=== PATIENT | female | born 1985 | race Two or more races ===

== ENCOUNTER 2016-08-21 14:07 | Emergency (ER) | payer OTHER ==
[2016-08-21 14:20] VITALS: BP 131/75; TEMP 97.7; BMI 19.5
--- NOTE | 2016-08-21 17:51 | PDOC ---
[id number] 4d HEADACHES, CHEST PAIN Time Seen by Provider: 08/21/16 17:40 History Source: Patient Exam Limitations: No Limitations - History of Present Illness Initial Comments: 08/21/16 17:47 30 yr female history of hypothyroidism presents with bilateral pain to under her breasts /rib cage for one week. Pt denies shortness of breath, no chest pain. Pt states she stopped taking her thyroid medication 2 weeks ago because it was making her itch. Pt denies smoking,, no ilicit drug or alcohol use. Pt denies travel, no OCP use. 08/21/16 18:59 Past History - Past Medical History Allergies/Adverse Reactions: Allergies Allergy/AdvReac Type Severity Reaction Status Date / Time No Known Allergies Allergy Verified 08/21/16 14:17 Home Medications: Ambulatory Orders No Home Medications 04/15/12 Acetaminophen W/ Codeine #3 [Tylenol # 3] 2 tab PO Q4H PRN #0 tablet 04/23/12 Labetalol HCl [Normodyne -] 100 mg PO BID #0 tablet 04/23/12 Asthma: No Cancer: No Cardiac Disorders: No Diabetes: No HTN: No Seizures: No Thyroid Disease: Yes - Psycho/Social/Smoking Cessation Hx Anxiety: No Suicidal Ideation: No Smoking Status: No Smoking History: Never smoked Have you smoked in the past 12 months: No Number of Cigarettes Smoked Daily: 0 Information on smoking cessation initiated: No Hx Alcohol Use: No Drug/Substance Use Hx: No Hx Substance Use Treatment: No *Physical Exam - Vital Signs Last Vital Signs Temp Pulse Resp BP Pulse Ox 97.7 F 64 18 131/75 100 08/21/16 14:18 08/21/16 14:18 08/21/16 14:18 08/21/16 14:18 08/21/16 14:18 - Physical Exam General Appearance: Yes: Nourished, Appropriately Dressed HEENT: positive: EOMI, PAWEL, Normal ENT Inspection, TMs Normal, Pharynx Normal Neck: positive: Supple. negative: Tender Respiratory/Chest: positive: Chest Tender (tender to touch sternal area), Lungs Clear, Normal Breath Sounds Cardiovascular: positive: Regular Rhythm, Regular Rate Gastrointestinal/Abdominal: positive: Normal Bowel Sounds, Soft. negative: Tender Musculoskeletal: positive: Normal Inspection Extremity: positive: Normal Capillary Refill, Normal Inspection, Normal Range of Motion Integumentary: positive: Normal Color, Dry, Warm Neurologic: positive: Fully Oriented, Alert, Normal Mood/Affect, Normal Response , Motor Strength 5/5 Heart Score/ECG Review - Risk Factors Risk Factors Heart Score: Yes Hx Diabetes - ECG Impressions Normal ECG: Yes Non-specific ST Elevation: No Ischemic Changes: No Comment:: 08/21/16 18:19 NSR signed by ED Treatment Course - LABORATORY CBC & Chemistry Diagram: 08/21/16 18:00 08/21/16 18:00 Medical Decision Making - Medical Decision Making 08/21/16 18:19 cc: midsternal chest pain reproducable to touch reproducable with deep breath pt denies fever no abd pain or nausea denies trauma pt states she took motrin with no relief. will check labs, CXR r/o 08/21/16 18:23 will get CTA D dimer elevated and will follow the LFT's 08/21/16 18:59 case discussed with in the main ER and will follow the case. Pt to get CTA. 08/21/16 19:01 08/21/16 19:34 08/24/16 08:07 *DC/Admit/Observation/Transfer Diagnosis at time of Disposition: Transaminitis - Discharge Dispostion Disposition: HOME Condition at time of disposition: Stable - Referrals Referrals: Nicole Earl MD [Primary Care Provider] - Call tomorrow - Patient Instructions Additional Instructions: PLENTY OF FLUIDS (WATER) IBUPROFEN ONLY FOR PAIN DO NOT TAKE ANY OTHER MEDICATION FOR PAIN UNTIL YOU SEE YOUR DOCTOR RETURN IF WORSENING OR NEW SYMPTOMS
[2016-08-21 18:06] LABS: MCH 23.3 pg (25.7-33.7); MCHC 31.3 g/dl (32.0-36.0); MEAN CELL VOLUME 74.4 fl (80-96); MEAN PLT VOLUME 8.5 fl (7.5-11.1); PLATELET COUNT 304 K/MM3 (134-434); RDW 18.8 % (11.6-15.6); WHITE BLOOD COUNT 3.3 K/mm3 (4.0-10.0)
[2016-08-21 18:34] LABS: URINE APPEARANCE SLCLOUDY; URINE BILIRUBIN NEGATIVE (NEGATIVE); URINE COLOR YELLOW; URINE GLUCOSE (UA) NEGATIVE (NEGATIVE); URINE KETONE TRACE (NEGATIVE); URINE LEUK ESTERASE NEGATIVE (NEGATIVE); URINE NITRITE NEGATIVE (NEGATIVE); URINE UROBILINOGEN NEGATIVE E.U./dl (0.2-1.0)
[2016-08-21 18:36] LABS: URINE BLOOD 3+ (NEGATIVE); URINE PROTEIN 1+ (NEGATIVE)
[2016-08-21 18:37] LABS: URINE MUCUS MANY; URINE RBC 110 /hpf (0-3); URINE WBC 8 /hpf (3-5)
[2016-08-21 18:42] LABS: ALBUMIN 3.9 g/dl (3.4-5.0); ANION GAP 8 (8-16); CALCIUM 8.2 mg/dL (8.5-10.1); CO2 27 mmol/L (21-32); GLUCOSE,RANDOM 85 mg/dL (74-106)
[2016-08-21 18:45] LABS: ALK PHOS 154 U/L (45-117); BILIRUBIN,TOTAL 0.3 mg/dL (0.2-1.0); CREATININE 0.7 mg/dL (0.55-1.02); SGOT/AST 305 U/L (15-37); TOT PROT 7.5 g/dl (6.4-8.2)
[2016-08-21 18:46] LABS: SGPT/ALT 562 U/L (12-78)
[2016-08-21 19:53] LABS: INR 1.19 (0.82-1.09); PROTHROMBIN TIME (PATIENT) 13.1 SEC (9.98-11.88)
[2016-08-21 20:18] LABS: AMYLASE 77 U/L (25-115)
[2016-08-21 20:29] LABS: TROPONIN I < 0.02 ng/ml (0.00-0.05)
--- NOTE | 2016-08-21 21:34 | PDOC ---
*Physical Exam - Vital Signs Last Vital Signs Temp Pulse Resp BP Pulse Ox 97.7 F 64 18 131/75 100 08/21/16 14:18 08/21/16 14:18 08/21/16 14:18 08/21/16 14:18 08/21/16 14:18 - Physical Exam General Appearance: Yes: Nourished, Appropriately Dressed. No: Apparent Distress HEENT: positive: Normal ENT Inspection. negative: Pale Conjunctivae, Scleral Icterus (R), Scleral Icterus (L) Neck: positive: Supple Respiratory/Chest: positive: Lungs Clear, Normal Breath Sounds. negative: Chest Tender, Respiratory Distress Cardiovascular: positive: Regular Rhythm, Regular Rate Gastrointestinal/Abdominal: positive: Normal Bowel Sounds, Tender (EPIGASTRIC AREA NO G/R). negative: Hepatomegaly, Spleenomegaly ED Treatment Course - LABORATORY CBC & Chemistry Diagram: 08/21/16 18:00 08/21/16 18:00 - ADDITIONAL ORDERS Additional order review: Laboratory Results 08/21/16 08/21/16 08/21/16 19:51 19:51 18:15 INR D-Dimer Sodium Potassium Chloride Carbon Dioxide Anion Gap BUN Creatinine Creat Clearance w eGFR Random Glucose Calcium Total Bilirubin AST ALT Alkaline Phosphatase Creatine Kinase 220 H CK-MB (CK-2) < 1.000 Troponin I < 0.02 Total Protein Albumin Total Amylase 77 Lipase 72 L TSH Urine Color Yellow Urine Appearance Slcloudy Urine pH 5.0 D Ur Specific [place] 1.027 Urine Protein 1+ H Urine Glucose (UA) Negative Urine Ketones Trace H Urine Blood 3+ H Urine Nitrite Negative Urine Bilirubin Negative Urine Urobilinogen Negative Ur Leukocyte Esterase Negative Urine RBC 110 Urine WBC 8 Ur Epithelial Cells Few Urine Mucus Many Urine HCG, Qual Negative 08/21/16 08/21/16 08/21/16 18:00 18:00 18:00 INR 1.19 H D-Dimer 765 H Sodium Potassium Chloride Carbon Dioxide Anion Gap BUN Creatinine Creat Clearance w eGFR Random Glucose Calcium Total Bilirubin AST ALT Alkaline Phosphatase Creatine Kinase CK-MB (CK-2) Troponin I Total Protein Albumin Total Amylase Lipase TSH 7.40 H Urine Color Urine Appearance Urine pH Ur Specific [place] Urine Protein Urine Glucose (UA) Urine Ketones Urine Blood Urine Nitrite Urine Bilirubin Urine Urobilinogen Ur Leukocyte Esterase Urine RBC Urine WBC Ur Epithelial Cells Urine Mucus Urine HCG, Qual 08/21/16 18:00 INR D-Dimer Sodium 139 Potassium 3.6 D Chloride 104 Carbon Dioxide 27 Anion Gap 8 BUN 8 D Creatinine 0.7 D Creat Clearance w eGFR > 60 Random Glucose 85 Calcium 8.2 L Total Bilirubin 0.3 AST 305 H D ALT 562 H D Alkaline Phosphatase 154 H D Creatine Kinase CK-MB (CK-2) Troponin I Total Protein 7.5 Albumin 3.9 D Total Amylase Lipase TSH Urine Color Urine Appearance Urine pH Ur Specific [place] Urine Protein Urine Glucose (UA) Urine Ketones Urine Blood Urine Nitrite Urine Bilirubin Urine Urobilinogen Ur Leukocyte Esterase Urine RBC Urine WBC Ur Epithelial Cells Urine Mucus Urine HCG, Qual 08/21/16 18:00 RBC 3.94 MCV 74.4 L D MCHC 31.3 L RDW 18.8 H D MPV 8.5 Progress Note - Progress Note Progress Note: CTA NEG FOR PE NORMAL LIVER US \TRANSAMINITIS NO OBVIOUS SOURCE WILL FOLLOW UP W/ PMD *DC/Admit/Observation/Transfer Diagnosis at time of Disposition: Elevated transaminase measurement - Discharge Dispostion Disposition: HOME Condition at time of disposition: Stable - Referrals Referrals: Nicole Earl MD [Primary Care Provider] - Call tomorrow - Patient Instructions Additional Instructions: PLENTY OF FLUIDS (WATER) IBUPROFEN ONLY FOR PAIN DO NOT TAKE ANY OTHER MEDICATION FOR PAIN UNTIL YOU SEE YOUR DOCTOR RETURN IF WORSENING OR NEW SYMPTOMS - Post Discharge Activity
[2016-08-21 21:41] VITALS: PULSE 59
--- NOTE | 2016-08-24 14:23 | EKG ---
Test Reason : Blood Pressure : / mmHG Vent. Rate : 065 BPM Atrial Rate : 065 BPM P-R Int : 170 ms QRS Dur : 068 ms QT Int : 386 ms P-R-T Axes : 069 061 074 degrees QTc Int : 401 ms NORMAL SINUS RHYTHM WITH SINUS ARRHYTHMIA NORMAL ECG WHEN COMPARED WITH ECG OF 27-NOV-2007 02:05, NO SIGNIFICANT CHANGE WAS FOUND Confirmed by ALONA HURD MD ([id number]) on 08/24/2016 2:23:34 PM Referred By: Confirmed By:ALONA HURD MD
== END 2016-08-21 21:41 | disposition home or self-care (01) ==
LOC: JER 14:07
DX: R74.0 Nonspecific elevation of levels of transaminase and lactic acid dehydrogenase [LDH] (principal); E03.9 Hypothyroidism, unspecified
CPT/HCPCS: 36415; 71275-TC; 76705-TC; 80053; 81003; 81015; 82150; 82550; 82553; 83690; 84443; 84481; 84484; 84703; 85027; 85379; 85610; 93005; 93010; 99281-25; C1887

== ENCOUNTER 2017-05-30 17:28 | Emergency (ER) | payer OTHER ==
[2017-05-30 18:01] VITALS: BP 113/90; PULSE 79; TEMP 97.9; BMI 19.5
--- NOTE | 2017-05-30 18:02 | PDOC ---
Rapid Medical Evaluation Time Seen by Provider: 05/30/17 17:35 Medical Evaluation: Allergies Allergy/AdvReac Type Severity Reaction Status Date / Time No Known Allergies Allergy Verified 08/21/16 14:17 05/30/17 17:59 I have performed a brief in-person evaluation of this patient. The patient presents with a chief complaint of: Chest pain since last night. No pmhx and no obvious Rfs for DVT/PE Pertinent physical exam findings:unremarkable I have ordered the following:EKG The patient will proceed to the ED for further evaluation.
--- NOTE | 2017-05-30 19:28 | PDOC ---
History of Present Illness - General Chief Complaint: Chest Pain Stated Complaint: FATGIE/ CHEST PAIN Time Seen by Provider: 05/30/17 17:35 - History of Present Illness Initial Comments: 31 year old previously healthy female presenting with new onset chest pain since last night. She is also complaining of a headache of one month duration that is responsive to Motrin and Tylenol. The chest pain is a sharp, non- radiating 4/10 - 8/10 pain worse with certain movements but non-exertional or pleuritic in nature. It does not co-present with any concerning symptoms. The headache is a frontal squeezing that that does not co-present with neck stiffness, photophobia, worsening in the morning, worsening when bending over, neurological symptoms, or visual symptoms. Denies any nausea, focal neurological signs, vomiting, diarrhea, or other sick symptoms. 05/30/17 19:34 Past History - Past Medical History Allergies/Adverse Reactions: Allergies Allergy/AdvReac Type Severity Reaction Status Date / Time No Known Allergies Allergy Verified 05/30/17 18:01 Home Medications: Ambulatory Orders Levothyroxine Sodium [Synthroid] 0 mcg PO DAILY 05/30/17 Asthma: No Cancer: No Cardiac Disorders: No COPD: No Diabetes: No HTN: No Seizures: No Thyroid Disease: Yes - Suicide/Smoking/Psychosocial Hx Smoking Status: No Smoking History: Never smoked Have you smoked in the past 12 months: No Number of Cigarettes Smoked Daily: 0 Hx Alcohol Use: Yes (SOCIAL) Drug/Substance Use Hx: No Substance Use Type: None Hx Substance Use Treatment: No Review of Systems - Review of Systems Constitutional: Yes: Loss of Appetite. No: Chills, Diaphoresis, Fever HEENTM: No: Blurred Vision Respiratory: No: Shortness of Breath, Wheezing Cardiac (ROS): Yes: Chest Pain. No: Palpitations ABD/GI: No: Constipated, Diarrhea, Nausea, Vomiting : No: Burning, Dysuria, Discharge Neurological: Yes: Headache *Physical Exam - Vital Signs Last Vital Signs Temp Pulse Resp BP Pulse Ox 97.9 F 79 20 113/90 100 05/30/17 17:59 05/30/17 17:59 05/30/17 17:59 05/30/17 17:59 05/30/17 17:59 - Physical Exam General Appearance: Yes: Nourished, Appropriately Dressed. No: Apparent Distress HEENT: positive: EOMI, Normal ENT Inspection, Normal Voice Neck: positive: Trachea midline, Normal Thyroid, Supple. negative: Tender, Rigid Respiratory/Chest: positive: Lungs Clear, Normal Breath Sounds. negative: Chest Tender, Respiratory Distress Cardiovascular: positive: Regular Rhythm, Regular Rate, S1, S2. negative: Murmur Gastrointestinal/Abdominal: positive: Normal Bowel Sounds, Flat, Soft. negative : Tender Musculoskeletal: positive: Normal Inspection. negative: CVA Tenderness Extremity: positive: Normal Capillary Refill, Normal Inspection, Normal Range of Motion Integumentary: positive: Normal Color, Dry, Warm Neurologic: positive: staff climate scientist II-XII NML intact, Fully Oriented, Alert, Normal Mood/ Affect, Normal Response, Motor Strength 12/01 ED Treatment Course - LABORATORY CBC & Chemistry Diagram: 05/30/17 19:50 05/30/17 Unknown - ADDITIONAL ORDERS Additional order review: Laboratory Results 05/30/17 19:00 Urine HCG, Qual Negative Medical Decision Making - Medical Decision Making 31 year old healthy female with one month of headache and one day of chest pain. The chest pain is moderately concerning given that it woke her up out of her sleep but overall un-concerning given her lack of risk factors or co- presenting symptoms. The headache is of moderate concern overall because of the lengthy duration and possible worsening. Will do a low risk rule out with one Troponin and EKG and will CT scan her head 05/31/17 01:00 CT head negative. Labs WNL, troponin negative. EKG NSR with normal axis. Will DC patient home with [facility]PC follow up at [facility] with Dr. Wang given that she does not have a PCP. 05/31/17 02:50 *DC/Admit/Observation/Transfer Diagnosis at time of Disposition: Chest pain Qualifiers: Chest pain type: unspecified Qualified Code(s): R07.9 - Chest pain, unspecified - Discharge Dispostion Disposition: HOME Condition at time of disposition: Improved Admit: No - Referrals Referrals: Lu Gutierrez MD [Primary Care Provider] - Ignacio Wang MD [Staff Physician] - - Patient Instructions Additional Instructions: You were seen for a headache and chest pain. We Scanned your head and checked your blood levels for any heart damage. Your head CT was clear and your EKG and blood levels were also fine. Please follow up at the [facility] to receive some medical care. Please return if you have any worsening pain or symptoms without relief with Tylenol or Motrin.
[2017-05-30] MEDS ORDERED: ACETAMINOPHEN 500 MG TABLET (FP) PO ONE (19:32)
--- NOTE | 2017-05-30 19:43 | PDOC ---
Attending Attestation - Resident Resident Name: Danny Alejandro - ED Attending Attestation I have performed the following: I have examined & evaluated the patient, The case was reviewed & discussed with the resident, I agree w/resident's findings & plan, Exceptions are as noted - HPI HPI: 05/30/17 19:41 Pt will no PMHx c/o headache and chest pain. Pt usually doesn't have headaches like this, but not the worst CALDWELL of her life. Pt also c/o CP - Physicial Exam PE: 05/30/17 19:41 *Physical Exam General Appearance: Yes: Appropriately Dressed. No: Apparent Distress, Intoxicated HEENT: positive: EOMI, PAWEL, Normal ENT Inspection, Normal Voice, TMs Normal, Pharynx Normal. negative: Pale Conjunctivae, Photophobia, Scleral Icterus (R), Scleral Icterus (L) Neck: positive: Trachea midline, Normal Thyroid, Supple. negative: Tender, Rigid, Carotid bruit, Stridor, Lymphadenopathy (R), Lymphadenopathy (L), Thyromegaly Respiratory/Chest: positive: Lungs Clear, Normal Breath Sounds. negative: Chest Tender, Respiratory Distress, Accessory Muscle Use, Labored Respiration, RES, Crackles, Rales, Rhonchi, Stridor, Wheezing, Dullness Cardiovascular: positive: Regular Rhythm, Regular Rate, S1, S2. negative: Edema , JVD, Murmur, Bradycardia, Tachycardia Vascular Pulses: Dorsalis-Pedis (R): 2+, Doralis-Pedis (L): 2+ Gastrointestinal/Abdominal: positive: Normal Bowel Sounds, Flat, Soft. negative : Tender, Organomegaly, Pulsatile Mass, Increased Bowel Sounds, Decreased BS, Distended, Guarding, Rebound, Hernia, Hepatomegaly, Spleenomegaly Lymphatic: negative: Adenopathy, Tenderness Musculoskeletal: positive: Normal Inspection. negative: CVA Tenderness, Decreased Range of Motion Extremity: positive: Normal Capillary Refill, Normal Inspection, Normal Range of Motion, Pelvis Stable. negative: Tender, Pedal Edema, Swelling, Erythema Integumentary: positive: Normal Color, Dry, Warm. negative: Cyanotic, Erythema , Jaundice, Rash Neurologic: positive: bleach boiler puller II-XII NML intact, Fully Oriented, Alert, Normal Mood/ Affect, Motor Strength 5/5. negative: EOM Palsy, Facial Droop, Sensory Deficit - Medical Decision Making 05/31/17 19:15 Pt feels better and discharged.
[2017-05-30] MEDS ORDERED: SODIUM CHLORIDE 0.9% 1000 ML INFUS.BAG IV ONE (19:53)
[2017-05-30] MEDS ORDERED: ACETAMINOPHEN 325 MG TABLET (FP) ONE (20:23)
[2017-05-30 20:35] LABS: BASOPHIL 0.7 % (0-2.0); EOSINOPHIL 1.5 % (0-4.5); MCH 21.9 pg (25.7-33.7); MCHC 31.3 g/dl (32.0-36.0); MEAN CELL VOLUME 69.8 fl (80-96); MEAN PLT VOLUME 8.5 fl (7.5-11.1); NEUTROPHILS 42.2 % (42.8-82.8); PLATELET COUNT 342 K/MM3 (134-434); RDW 21.3 % (11.6-15.6); WHITE BLOOD COUNT 3.6 K/mm3 (4.0-10.0)
[2017-05-30 21:19] LABS: ALBUMIN 3.9 g/dl (3.4-5.0); ANION GAP 5 (8-16); BILIRUBIN,TOTAL 0.2 mg/dL (0.2-1.0); CALCIUM 8.3 mg/dL (8.5-10.1); CO2 29 mmol/L (21-32); CREATININE 0.7 mg/dL (0.55-1.02); GLUCOSE,RANDOM 101 mg/dL (74-106); SGOT/AST 24 U/L (15-37); SGPT/ALT 20 U/L (12-78)
[2017-05-30 21:22] LABS: ALK PHOS 94 U/L (45-117); CPK 237 IU/L (26-192); TOT PROT 8.4 g/dl (6.4-8.2); TROPONIN I < 0.02 ng/ml (0.00-0.05)
[2017-05-30 22:07] LABS: PLATELET ESTIMATE ADEQUATE (NORMAL)
[2017-05-30 22:08] LABS: ANISOCYTOSIS 2+; HYPOCHROMIA 2+; MACROCYTOSIS 1+; MICROCYTOSIS 1+
--- NOTE | 2017-05-31 17:03 | EKG ---
Test Reason : Blood Pressure : / mmHG Vent. Rate : 095 BPM Atrial Rate : 095 BPM P-R Int : 156 ms QRS Dur : 064 ms QT Int : 356 ms P-R-T Axes : 072 063 076 degrees QTc Int : 447 ms NORMAL SINUS RHYTHM POSSIBLE LEFT ATRIAL ENLARGEMENT LOW VOLTAGE QRS SEPTAL INFARCT , AGE UNDETERMINED ABNORMAL ECG WHEN COMPARED WITH ECG OF 21-AUG-2016 14:22, NO SIGNIFICANT CHANGE WAS FOUND Confirmed by VANNESSA BUNCH, ALONA ([id number]) on 05/31/2017 5:03:06 PM Referred By: Confirmed By:ALONA HURD MD
== END 2017-05-30 23:01 | disposition home or self-care (01) ==
LOC: JER 17:28
PROC: 3E0337Z Introduction of Electrolytic and Water Balance Substance into Peripheral Vein, Percutaneous Approach (ICD-10-PCS; principal; 2017-05-30)
DX: R07.9 Chest pain, unspecified (principal)
CPT/HCPCS: 36415; 70450-TC; 80053; 82550; 82553; 83735; 84443; 84484; 84703; 85025; 93005; 93010; 99285-25

== ENCOUNTER 2018-05-05 17:27 | Emergency (ER) | payer OTHER ==
[2018-05-05 18:01] VITALS: BP 110/67; PULSE 85; TEMP 98.1; BMI 20.7
--- NOTE | 2018-05-05 19:57 | PDOC ---
History of Present Illness - General History Source: Patient Exam Limitations: No Limitations - History of Present Illness Initial Comments: 05/05/18 20:31 "The patient is a 32 year old female, A2, now 8 weeks , with a significant PMH of hypothyroid,ectopic , and preeclampsia who presents to the emergency department with vaginal spotting since 8AM today. Patient states the vaginal spotting is bright red and denies any associated cramping or pain, the volume was less than her typical period. Patient did notice a blood clot. Patient reports she was sexually active last night. Patient notes she had mild vaginal spotting last week that resolved on its own. Patient was seen at an urgent care at 2PM today and had a pelvic exam which showed no active bleeding, no vaginal discharge or lesions, no CMT. Patient was sent to the ER for an ultrasound to further evaluate the vaginal spotting. Patient does not currently have an ORGANISATIONAL PSYCHOLOGIST. The patient denies chest pain, shortness of breath, headache and dizziness. Denies fever, chills, nausea, vomit, diarrhea and constipation. Denies dysuria, frequency, urgency and hematuria. Allergies: NKA Past surgical history: None reported. Social history: No reported alcohol, drug or cigarette use. " <Rosibel Cole - Last Filed: 05/05/18 20:31> <Allen Loredo - Last Filed: 05/06/18 06:49> - General Chief Complaint: Vaginal Bleeding Stated Complaint: SPOTTING/8 WKS Time Seen by Provider: 05/05/18 19:56 Past History <Rosibel Cole - Last Filed: 05/05/18 20:31> - Past Medical History Asthma: No Cancer: No Cardiac Disorders: No CVA: No COPD: No CHF: No Diabetes: No HTN: No Seizures: No Thyroid Disease: Yes - Suicide/Smoking/Psychosocial Hx Smoking Status: No Smoking History: Never smoked Have you smoked in the past 12 months: No Number of Cigarettes Smoked Daily: 0 Information on smoking cessation initiated: No Hx Alcohol Use: No Drug/Substance Use Hx: No Substance Use Type: None Hx Substance Use Treatment: No <Allen Loredo - Last Filed: 05/06/18 06:49> - Past Medical History Allergies/Adverse Reactions: Allergies Allergy/AdvReac Type Severity Reaction Status Date / Time No Known Allergies Allergy Verified 05/05/18 18:01 Home Medications: Ambulatory Orders Levothyroxine Sodium [Synthroid] 0 mcg PO DAILY 05/30/17 Review of Systems - Review of Systems Able to Perform ROS?: Yes Comments:: 05/05/18 20:31 " Constitutional - no reported Fever, Chills, HEENT: no reported vision changes, sore throat Respiratory: no reported cough, sob, hemoptysis Cardiac: no reported chest pain, palpitations, light headedness, leg swelling Abd/GI: no reported abd pain, nausea, vomiting, blood per rectum, melena, diarrhea : Vag bleeding, no reported dysuria, frequency, discharge Musculskelatal - no reported back pain, joint swelling skin - no reported bruising, erythema, rash neurological: no reported headache, numbness, focal weakness, tingling, ataxia, hematologic: no reported easy bruising, easy bleeding " <Rosibel Cole - Last Filed: 05/05/18 20:31> *Physical Exam - Vital Signs Last Vital Signs Temp Pulse Resp BP Pulse Ox 98.1 F 85 16 110/67 100 05/05/18 17:57 05/05/18 17:57 05/05/18 17:57 05/05/18 17:57 05/05/18 17:57 - Physical Exam Comments: 05/05/18 20:31 "GENERAL: The patient is awake, alert, and fully oriented, Nontoxic - in no acute distress. HEAD: Normocephalic, atraumatic. EYES: extraocular movements intact, sclera anicteric, conjunctiva clear. ENT: Normal voice, Moist mucous membranes. NECK: Normal range of motion, supple LUNGS: Breath sounds equal, clear to auscultation bilaterally. No wheezes, no rhonchi, no rales. HEART: Regular rate and rhythm, without murmur, rub or gallop. ABDOMEN: Soft, nontender, No guarding, no rebound.No CVA tenderness EXTREMITIES: Normal range of motion, no edema. No cyanosis. No erythema, or tenderness. PARTS ADMINISTRATOR: Patient declined pelvic exam. NEUROLOGICAL: No facial assymetry, Normal speech, PSYCH: Normal mood, normal affect. SKIN: Warm, Dry, normal turgor," <Rosibel Cole - Last Filed: 05/05/18 20:31> - Vital Signs Last Vital Signs Temp Pulse Resp BP Pulse Ox 98.1 F 85 16 110/67 100 05/05/18 17:57 05/05/18 17:57 05/05/18 17:57 05/05/18 17:57 05/05/18 17:57 <Allen Loredo - Last Filed: 05/06/18 06:49> ED Treatment Course - LABORATORY CBC & Chemistry Diagram: 05/05/18 20:08 - ADDITIONAL ORDERS Additional order review: 05/05/18 20:08 RBC 4.20 MCV 73.0 L MCHC 31.8 L RDW 20.0 H MPV 8.0 Neutrophils % 46.9 Lymphocytes % 36.8 D Monocytes % 14.7 H Eosinophils % 1.4 Basophils % 0.2 <Rosibel Cole - Last Filed: 05/05/18 20:31> - LABORATORY CBC & Chemistry Diagram: 05/05/18 20:08 <Allen Loredo - Last Filed: 05/06/18 06:49> Medical Decision Making - Medical Decision Making 05/05/18 19:56 32y F hx of preeclampsia A2 currently 8w presents with vaginal bleeding, was having intercourse last enight and woke up this morning with bleeding/spotting. no associated abd pain. pt went to Urgent care had a pelvic exam and UA and was sent here for threatened ab workup pt decines a pelvic at this time as she had one earlier will obtian cbc, type for rhogam, ua, tvus will give insurance case manager referral A portion of this note was documented by scribe services under my direction. I have reviewed the details of the note, within reason, and agree with the documentation with the following case summary and management plan written by me 05/05/18 21:59 labs reviewed beta in 30k range US noted for gestational sack without FHR, suspect demise will refer pt to insurance case manager for further management returen precautiosn were discussed I discussed the physical exam findings, ancillary test results and final diagnoses with the patient. I answered all of the patient's questions. The patient was satisfied with the care received and felt comfortable with the discharge plan and treatment plan. The patient will call their primary care physician within 24 hours to arrange follow-up and will return to the Emergency Department with any new, persistent or worsening symptoms. <Facundo,Allen - Last Filed: 05/06/18 06:49> *DC/Admit/Observation/Transfer - Attestations Scribe Attestion: 05/05/18 20:31 Documentation prepared by Rosibel Cole, acting as medical billing coordinator for Allen Loredo MD. <Rosibel Cole - Last Filed: 05/05/18 20:31> - Discharge Dispostion Decision to Admit order: No <Allen Loredo - Last Filed: 05/06/18 06:49> Diagnosis at time of Disposition: Threatened - Discharge Dispostion Disposition: HOME Condition at time of disposition: Stable - Referrals Referrals: Joel Hickman MD [Staff Physician] - - Patient Instructions Printed Discharge Instructions: DI for Vaginal Bleeding During Additional Instructions: Your ultrasound revealed a but without signs of heart rate. Please follow up with gynecology for reevaluation. You may see some vaginal bleeding/spotting or have some cramping. Return to the emergency department if you have a significant amount of vaginal bleeding (bleeding through 2 pads / hr ) or feel lightheaded or have any other concerns. A copy of your ultrasound report and lab results are included with your discharge paperwork. Print Language: CYMRO
[2018-05-05 20:27] LABS: BASO % 0.2 % (0-2.0); EOS % 1.4 % (0-4.5); HEMATOCRIT 30.7 % (32.4-45.2); HEMOGLOBIN 9.8 GM/dL (10.7-15.3); LYMPH % 36.8 % (8-40); MCH 23.2 pg (25.7-33.7); MCHC 31.8 g/dl (32.0-36.0); MONO % 14.7 % (3.8-10.2); NEUT % 46.9 % (42.8-82.8); PLATELET COUNT 362 K/MM3 (134-434); WHITE BLOOD COUNT 4.6 K/mm3 (4.0-10.0)
[2018-05-06 05:16] LABS: URINE APPEARANCE CLEAR; URINE BILIRUBIN NEGATIVE (<2.0 mg/dL); URINE COLOR YELLOW; URINE GLUCOSE (UA) NEGATIVE (NEGATIVE); URINE KETONE NEGATIVE (NEGATIVE); URINE LEUK ESTERASE NEGATIVE (NEGATIVE); URINE NITRITE NEGATIVE (NEGATIVE); URINE PROTEIN NEGATIVE (NEGATIVE); URINE UROBILINOGEN NEGATIVE mg/dL (0.2-1.0)
== END 2018-05-05 22:28 | disposition home or self-care (01) ==
LOC: JER 17:27
DX: O26.891 Other specified pregnancy related conditions, first trimester (principal); O20.0 Threatened abortion; Z3A.08 8 weeks gestation of pregnancy
CPT/HCPCS: 36415; 76817-TC; 81003; 84702; 85025; 86850; 86900; 86901; 99282-25

== ENCOUNTER → 2018-05-27 | Day surgery (SDC) | payer OTHER ==
[2018-05-24 16:45] VITALS: BMI 22.6
== END | disposition home or self-care (01) ==
LOC: JASU-SURG 05:13
PROVIDERS: ATTEND Obstetrics & Gynecology
PROC: 3E013GC Introduction of Other Therapeutic Substance into Subcutaneous Tissue, Percutaneous Approach (ICD-10-PCS; principal; 2018-05-27)
DX: Z53.8 Procedure and treatment not carried out for other reasons (principal)

== ENCOUNTER 2018-05-31 14:02 | Emergency (ER) | payer OTHER ==
[2018-05-31] MEDS ORDERED: SODIUM CHLORIDE 1,000 ML IV STA (14:31)
--- NOTE | 2018-05-31 14:34 | PDOC ---
Rapid Medical Evaluation Chief Complaint: Vaginal Bleeding Time Seen by Provider: 05/31/18 14:29 Medical Evaluation: Allergies Allergy/AdvReac Type Severity Reaction Status Date / Time No Known Allergies Allergy Verified 05/05/18 18:01 05/31/18 14:30 32 year old female seen by commutator presser + IUP with no FHR. now with vaginal bleeding x 2 hours with some abdominal cramping. LMP: 03/13/18 Pe: patient alert ox3 A: vaginal bleeding P: labs TVUS IVF patient to the ER for further management of care. doctor of naprapathic medicine Dr. Carroll 2 blayne florian 05/31/18 14:33 Discharge Disposition - Diagnosis Vaginal bleeding during - Referrals - Patient Instructions - Post Discharge Activity
[2018-05-31 14:39] VITALS: BP 129/84; PULSE 78; TEMP 98.5; BMI 21.4
--- NOTE | 2018-05-31 15:40 | PDOC ---
History of Present Illness - General Chief Complaint: Vaginal Bleeding Stated Complaint: VAGINAL BLEEDING Time Seen by Provider: 05/31/18 14:29 History Source: Patient Exam Limitations: No Limitations - History of Present Illness Initial Comments: 05/31/18 17:13 Patient is a 32F (One vaginal delivery, 2 elective abortions, 1 2/ 2 pre-eclampsia, 2 miscarriages) here today complaining of vaginal bleeding and cramping abdominal pain that started today. She denies passing large clots. Denies chest pain, shortness of breath, nausea, vomiting and weakness. She had an ultrasound down one week ago that showed demise, but has yet to pass tissue. Denies dysuria, vaginal discharge. No leg swelling. Patient states that she is 8 weeks . OBGYN is Dr Carroll at [address] [place] [address]. Past History - Past Medical History Allergies/Adverse Reactions: Allergies Allergy/AdvReac Type Severity Reaction Status Date / Time No Known Allergies Allergy Verified 05/31/18 14:30 Home Medications: Ambulatory Orders Levothyroxine Sodium [Synthroid] 75 mcg PO DAILY 05/30/17 Asthma: No Cancer: No Cardiac Disorders: No CVA: No COPD: No CHF: No Diabetes: No HTN: No Seizures: No Thyroid Disease: Yes Other medical history: lmp 03/13/2018 - Suicide/Smoking/Psychosocial Hx Smoking Status: No Smoking History: Never smoked Have you smoked in the past 12 months: No Number of Cigarettes Smoked Daily: 0 Information on smoking cessation initiated: No Hx Alcohol Use: No Drug/Substance Use Hx: No Substance Use Type: None Hx Substance Use Treatment: No Review of Systems - Review of Systems Comments:: 05/31/18 17:15 GENERAL/CONSTITUTIONAL: No fever or chills. No weakness. HEAD, EYES, EARS, NOSE AND THROAT: No change in vision. No sore throat. CARDIOVASCULAR: No chest pain or shortness of breath RESPIRATORY: No cough, wheezing, or hemoptysis. GASTROINTESTINAL: No nausea, vomiting, diarrhea or constipation. GENITOURINARY: No dysuria, frequency, or change in urination. MUSCULOSKELETAL: No joint or muscle swelling or pain. No neck or back pain. SKIN: No rash NEUROLOGIC: No headache, vertigo, loss of consciousness, or change in strength/ sensation. ENDOCRINE: No increased thirst. No abnormal weight change HEMATOLOGIC/LYMPHATIC: No anemia, easy bleeding, or history of blood clots. ALLERGIC/IMMUNOLOGIC: No hives or skin allergy. *Physical Exam - Vital Signs Last Vital Signs Temp Pulse Resp BP Pulse Ox 98.5 F 78 20 129/84 99 05/31/18 14:10 05/31/18 14:10 05/31/18 14:10 05/31/18 14:10 05/31/18 14:10 - Physical Exam Comments: 05/31/18 17:16 GENERAL: Awake, alert, and fully oriented, in no acute distress : Normal external genitalia. No CMT, no masses, closed cervical os, small amount of blood in vaginal vault. HEAD: No signs of trauma, normocephalic, atraumatic EYES: PERRLA, EOMI, sclera anicteric, conjunctiva clear ENT: Auricles normal inspection, hearing grossly normal, nares patent, oropharynx clear without exudates. Moist mucosa NECK: Normal ROM, supple, no lymphadenopathy, JVD, or masses LUNGS: No distress, speaks full sentences, clear to auscultation bilaterally HEART: Regular rate and rhythm, normal S1 and S2, no murmurs, rubs or gallops, peripheral pulses normal and equal bilaterally. ABDOMEN: Soft, nontender, normoactive bowel sounds. No guarding, no rebound. No masses EXTREMITIES: Normal inspection, Normal range of motion, no edema. No clubbing or cyanosis. NEUROLOGICAL: Cranial nerves II through XII grossly intact. Normal speech, normal gait, no focal sensorimotor deficits SKIN: Warm, Dry, normal turgor, no rashes or lesions noted. ED Treatment Course - LABORATORY CBC & Chemistry Diagram: 05/31/18 16:51 Medical Decision Making - Medical Decision Making 05/31/18 17:17 Patient is 32F here today complaining of vaginal bleeding. US ordered in triage shows demise at 7 weeks gestation. Afebrile. Considered retained products causing septic , but patient is afebrile with minimal pain on exam. Suspect missed AB vs in progress. Will check blood type, hgb, hcg level and likely discharge with OB follow up. *DC/Admit/Observation/Transfer Diagnosis at time of Disposition: Vaginal bleeding during - Discharge Dispostion Disposition: HOME Condition at time of disposition: Good Decision to Admit order: No - Referrals Referrals: Bozena Dodd [Primary Care Provider] - - Patient Instructions Printed Discharge Instructions: DI for Miscarriage Additional Instructions: Please follow up with your OBGYN with a call on Sunday. You already have an appointment for Sunday. Please return to the ED if you have any new, worsening or concerning symptoms, especially fevers, increasing pain, chest pain and shortness of breath. - Post Discharge Activity
--- NOTE | 2018-05-31 16:48 | PDOC ---
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 The patient presents vaginal bleeding, thats associated with abdominal pain. LMP: 03/13/2018. Allergies: NKA - Medical Decision Making 05/31/18 18:03 Documentation prepared by Chel Montelongo, acting as medical office technologist for Onofre Herring MD. <Chel Montelongo - Last Filed: 05/31/18 18:02> - Resident Resident Name: Rogelio Julian - ED Attending Attestation I have performed the following: I have examined & evaluated the patient, The case was reviewed & discussed with the resident, I agree w/resident's findings & plan, Exceptions are as noted - Physicial Exam PE: 05/31/18 19:39 Patient is awake and alert, well-appearing, afebrile, in no distress Normocephalic, atraumatic PERRLA, EOMI CTA RRR Abdomen soft, nondistended, non-tender - Medical Decision Making 05/31/18 19:40 patient is a 32-y/0 female 6 para 1, who presents with lower abdominal pain and mild vb. Patient's hemodynamically stable and afebrile. Repeat transvaginal ultrasound shows intrauterine demise. Patient is Rh+ and no Rhogam is indicated. Case discussed with Dr. Sebastian of OB. Will discharge patient with outpatient follow-up for a D&C. <Onofre Herring - Last Filed: 05/31/18 19:45>
[2018-05-31 17:04] LABS: BASO % 0.4 % (0-2.0); EOS % 3.2 % (0-4.5); HEMATOCRIT 36.2 % (32.4-45.2); HEMOGLOBIN 11.8 GM/dL (10.7-15.3); LYMPH % 44.2 % (8-40); MCHC 32.7 g/dl (32.0-36.0); MEAN CELL VOLUME 79.5 fl (80-96); MEAN PLT VOLUME 7.8 fl (7.5-11.1); MONO % 11.8 % (3.8-10.2); NEUT % 40.4 % (42.8-82.8); PLATELET COUNT 327 K/MM3 (134-434); RBC 4.56 M/mm3 (3.60-5.2); WHITE BLOOD COUNT 4.2 K/mm3 (4.0-10.0)
[2018-05-31 17:17] LABS: INR 1.12 (0.83-1.09); PROTHROMBIN TIME (PATIENT) 13.2 SEC (9.7-13.0)
[2018-05-31 18:30] LABS: ANISOCYTOSIS 2+; PLATELET ESTIMATE ADEQUATE
== END 2018-05-31 19:46 | disposition home or self-care (01) ==
LOC: JER 14:02
PROC: 3E0337Z Introduction of Electrolytic and Water Balance Substance into Peripheral Vein, Percutaneous Approach (ICD-10-PCS; principal; 2018-05-31)
DX: O26.891 Other specified pregnancy related conditions, first trimester (principal); O46.91 Antepartum hemorrhage, unspecified, first trimester; Z3A.08 8 weeks gestation of pregnancy
CPT/HCPCS: 36415; 76817-TC; 84702; 85025; 85610; 86850; 86900; 86901; 96360; 99283-25; J7030

== ENCOUNTER 2019-01-10 21:36 | Emergency (ER) | payer OTHER ==
[2019-01-10 21:40] VITALS: BP 137/88; PULSE 83; TEMP 98.2; BMI 21.5
--- NOTE | 2019-01-10 21:43 | PDOC ---
History of Present Illness - History of Present Illness Initial Comments: 01/10/19 22:53 Patient is a 33 year old female presented to the ED complaining of abdominal pain x 3 days. As per the patient, she was apparently well until 3 days ago, then she started having pain in the epigastric area, burning in sensation, 8/10 in intensity, non radiating. She took motrin but didn't feel better. Pain started getting worse, today started having burning in chest so came in to the ED for further evaluation. Patient reports she had a dental procedure a week ago, is on antibiotics 4 times a day. Denies nausea, vomiting, palpitation, sob, cough, fever, chills, rigors or sweating. Bowel/Bladder habit normal. Sleep normal. Appetite decreased. Past Medical hx: Hypothyroidism, recent dental procedure. Allergies: NKDA Past Surgical Hx: C-sec 7 yrs ago Smoking/Alcohol/Drugs denies LMP- Mid Nov, 2018 Occupation: Health aid. <Charo Veloz - Last Filed: 01/10/19 23:56> <Dawson Andres - Last Filed: 01/11/19 02:05> - General Chief Complaint: Pain Stated Complaint: ABDOMINAL PAIN Time Seen by Provider: 01/10/19 21:43 Past History - Travel Traveled outside of the country in the last 30 days: No Close contact w/someone who was outside of country & ill: No - Past Medical History Asthma: No Cancer: No Cardiac Disorders: No CVA: No COPD: No CHF: No Diabetes: No HTN: No Seizures: No Thyroid Disease: Yes - Suicide/Smoking/Psychosocial Hx Smoking Status: No Smoking History: Never smoked Have you smoked in the past 12 months: No Number of Cigarettes Smoked Daily: 0 Hx Alcohol Use: No Drug/Substance Use Hx: No Substance Use Type: None Hx Substance Use Treatment: No <Charo Veloz - Last Filed: 01/10/19 23:56> <Dawson Andres - Last Filed: 01/11/19 02:05> - Past Medical History Allergies/Adverse Reactions: Allergies Allergy/AdvReac Type Severity Reaction Status Date / Time No Known Allergies Allergy Verified 01/10/19 21:39 Home Medications: Ambulatory Orders Levothyroxine Sodium [Synthroid] 75 mcg PO DAILY 05/30/17 Ranitidine [Zantac -] 300 mg PO ONCE 14 Days #14 tablet 01/11/19 Review of Systems - Review of Systems Able to Perform ROS?: Yes Is the patient limited Somali proficient: No <Charo Veloz - Last Filed: 01/10/19 23:56> *Physical Exam - Vital Signs Last Vital Signs Temp Pulse Resp BP Pulse Ox 98.2 F 83 18 137/88 99 01/10/19 21:38 01/10/19 21:38 01/10/19 21:38 01/10/19 21:38 01/10/19 21:38 - Physical Exam Comments: 01/10/19 22:58 General: Young female, lying in bed comfortably, awake, alert, oriented x 3, in no acute distress. HEENT: EOM intact, no pallor or icterus. Chest: B/L lungs clear, no added sounds CVS: Regular rate, rhythm, S1, S2, no murmurs Abdomen: Soft, tenderness in epigastric area, BS+ Ext: No peripheral edema Neuro: Grossly normal. <Charo Veloz - Last Filed: 01/10/19 23:56> - Vital Signs Last Vital Signs Temp Pulse Resp BP Pulse Ox 98.2 F 83 18 137/88 99 01/10/19 21:38 01/10/19 21:38 01/10/19 21:38 01/10/19 21:38 01/10/19 21:38 <Dawson Andres - Last Filed: 01/11/19 02:05> ED Treatment Course - LABORATORY CBC & Chemistry Diagram: 01/10/19 22:25 01/10/19 22:25 <Charo Veloz - Last Filed: 01/10/19 23:56> - LABORATORY CBC & Chemistry Diagram: 01/10/19 22:25 01/10/19 22:25 - ADDITIONAL ORDERS Additional order review: Laboratory Results 01/10/19 01/10/19 01/10/19 22:25 22:25 22:25 Sodium 137 Potassium 3.9 Chloride 103 Carbon Dioxide 29 Anion Gap 5 L BUN 13.8 Creatinine 0.8 Est GFR (CKD-EPI)AfAm 112.27 Est GFR (CKD-EPI)NonAf 96.87 Random Glucose 88 Calcium 8.8 Total Bilirubin 0.2 AST 24 ALT 23 Alkaline Phosphatase 97 Total Protein 8.2 Albumin 3.6 Serum , Qual Negative Urine Color Yellow Urine Appearance Cloudy Urine pH 6.0 Ur Specific [place] 1.039 H Urine Protein Trace Urine Glucose (UA) Negative Urine Ketones Trace H Urine Blood Negative Urine Nitrite Negative Urine Bilirubin Negative Urine Urobilinogen 0.2 Ur Leukocyte Esterase Negative 01/10/19 22:25 RBC 4.07 MCV 78.7 L MCHC 32.7 RDW 17.4 H MPV 8.2 - Medications Given in the ED: ED Medications Discontinued Medications Generic Name Dose Route Start Last Admin Trade Name Davq PRN Reason Stop Dose Admin Al Hydroxide/Mg Hydroxide 30 ml 01/10/19 22:49 01/10/19 23:09 Mylanta Oral Suspension - PO 01/10/19 22:50 30 ml ONCE ONE Administration Sodium Chloride 1,000 mls @ 1,000 mls/hr 01/10/19 22:11 01/10/19 22:28 Normal Saline - IV 01/10/19 23:10 1,000 mls/hr ASDIR STA Administration Famotidine/Sodium Chloride 20 mg in 50 mls @ 100 mls/hr 01/10/19 22:50 23:09 Pepcid 20 Mg Premixed Ivpb - IVPB 01/10/19 23:19 100 mls/hr ONCE ONE Administration Lidocaine HCl 20 ml 01/10/19 22:49 01/10/19 23:09 Xylocaine 2% Viscous Oral - MM 01/10/19 22:50 20 ml ONCE ONE Administration <Dawson Andres - Last Filed: 01/11/19 02:05> Medical Decision Making - Medical Decision Making 01/10/19 23:00 Patient is a 33 year old female with PMhx of hypothyroidism presented with epigastric/chest burning sensation x 2 days. Differetial diagnosis: Gastritis, appendicitis, UTI Will send CBC, CMP, UA, serum preg test Will give a L of NS Maalox, Pepsid, Lidocaine. 01/10/19 23:56 CBC, CMP, UA normal. Preg test negative Patient now states she has a h/o gall stones for which she was recommended to be removed, however, she never followed up. Will order USG of abdomen to r/o cholelithiasis. Plan DC home if it is negative <Charo Veloz - Last Filed: 01/10/19 23:56> *DC/Admit/Observation/Transfer <Charo Veloz - Last Filed: 01/10/19 23:56> - Discharge Dispostion Decision to Admit order: No <Dawson Andres - Last Filed: 01/11/19 02:05> Diagnosis at time of Disposition: Abdominal pain - Discharge Dispostion Disposition: HOME Condition at time of disposition: Stable - Prescriptions Prescriptions: Ranitidine [Zantac -] 300 mg PO ONCE 14 Days #14 tablet - Referrals Referrals: Faustina Cai MD [Primary Care Provider] - - Patient Instructions Printed Discharge Instructions: Acute Abdominal Pain Additional Instructions: You came into the ER with abdominal pain. We are sending a medication to your pharmacy for you to take once a day for the next 14 days. Please make sure to drink plenty of fluids and take the zantac with your antibiotics. PLEASE TAKE ANTIBIOTICS WITH FOOD AND MILK. PLEASE STAY UPRIGHT FOR 30 MINUTES AFTER TAKING YOUR MEDICATIONS. Please make sure to schedule a follow up appointment with your PCP in the next 3 to 5 days. Come back to the ER if your pain worsens or you experience any other new or worsening concerns. Thank you for coming to the [facility] ER. We hope you feel better soon! Print Language: BULGARIAN
[2019-01-10] MEDS ORDERED: SODIUM CHLORIDE 1,000 ML IV STA (22:11)
[2019-01-10 22:44] LABS: HEMATOCRIT 32.1 % (32.4-45.2); HEMOGLOBIN 10.5 GM/dL (10.7-15.3); MCH 25.8 pg (25.7-33.7); MCHC 32.7 g/dl (32.0-36.0); MEAN CELL VOLUME 78.7 fl (80-96); MEAN PLT VOLUME 8.2 fl (7.5-11.1); PLATELET COUNT 311 K/MM3 (134-434); RBC 4.07 M/mm3 (3.60-5.2); RDW 17.4 % (11.6-15.6); WHITE BLOOD COUNT 4.8 K/mm3 (4.0-10.0)
[2019-01-10] MEDS ORDERED: LIDOCAINE VISCOUS 2% ORAL/TOP 20 ML UNIT-DOSE CUP MM ONE (22:49)
[2019-01-10] MEDS ORDERED: MAG HYDROX/AL HYDROX/SIMETH 30 ML UNIT-DOSE CUP PO ONE (22:49)
[2019-01-10] MEDS ORDERED: FAMOTIDINE 20 MG/50 ML IVPB 20 MG/50 ML MG IVPB ONE ×2 (22:50→23:18)
[2019-01-10 22:51] LABS: URINE APPEARANCE CLOUDY; URINE BILIRUBIN NEGATIVE (NEGATIVE); URINE COLOR YELLOW; URINE GLUCOSE (UA) NEGATIVE (NEGATIVE); URINE KETONE TRACE (NEGATIVE); URINE LEUK ESTERASE NEGATIVE (NEGATIVE); URINE NITRITE NEGATIVE (NEGATIVE); URINE PROTEIN TRACE (NEGATIVE); URINE UROBILINOGEN 0.2 mg/dL (0.2-1.0)
[2019-01-10] MEDS ORDERED: MAG HYDROX/AL HYDROX/SIMETH 30 ML UNIT-DOSE CUP ONE (23:17)
[2019-01-10] MEDS ORDERED: LIDOCAINE VISCOUS 2% ORAL/TOP 20 ML UNIT-DOSE CUP ONE (23:17)
[2019-01-10 23:21] LABS: ALBUMIN 3.6 g/dl (3.4-5.0); BILIRUBIN,TOTAL 0.2 mg/dL (0.2-1); BLOOD UREA NITROGEN 13.8 mg/dL (7-18); CALCIUM 8.8 mg/dL (8.5-10.1); CREATININE 0.8 mg/dL (0.55-1.3); POTASSIUM 3.9 mmol/L (3.5-5.1); TOT PROT 8.2 g/dl (6.4-8.2)
--- NOTE | 2019-01-10 23:21 | PDOC ---
Documentation entered by Petra Klein SCRIBE, acting as scribe for Marisol Eduardo DO. Marisol Eduardo DO: This documentation has been prepared by the Latoya yuen Mackenzie, SCRIBE, under my direction and personally reviewed by me in its entirety. I confirm that the documentation accurately reflects all work , treatment, procedures, and medical decision making performed by me. Attending Attestation - Resident Resident Name: Charo Veloz - ED Attending Attestation I have performed the following: I have examined & evaluated the patient, The case was reviewed & discussed with the resident, I agree w/resident's findings & plan - HPI HPI: The patient is a 33 year old female, with a significant PMH of hypothyroidism who presents to the emergency department with intermittent abdominal pain for the past 3 days. Patient describes the pain as starting in the epigastric region radiating to her chest as heartburn, and accompanied by a metallic taste in her mouth. Patient also reports starting antibiotics (not completely compliant) after her dental surgery last sunday and states she also takes 800mg of ibuprofen daily. Patient admits to taking these medications on an empty stomach. LMP 12/16. The patient denies shortness of breath, headache and dizziness. Denies fever, chills, nausea, vomiting, diarrhea and constipation. Denies dysuria, frequency, urgency and hematuria. Allergies: NKA Past surgical history: 7 years ago. Social history: None reported 01/10/19 23:49 01/10/19 23:50 - Physicial Exam PE: Constitutional: Awake, alert, oriented. No acute distress. Head: Normocephalic. Atraumatic Eyes: PERRL. EOMI. Conjunctivae are not pale. ENT: Mucous membranes are moist and intact. Posterior pharynx without exudates or erythema. Uvula midline. Neck: Supple. Full ROM. No lymphadenopathy. Cardiovascular: Regular rate. Regular rhythm. S1, S2 regular. Distal pulses are 2+ and symmetric. Pulmonary/Chest: No evidence of respiratory distress. Clear to auscultation bilaterally No wheezing, rales or rhonchi. Abdominal: (+)Mild epigastric tenderness. Soft and non-distended. No rebound, guarding or rigidity. No organomegaly. No palpable masses. Good bowel sounds. Back: No CVA tenderness. Musculoskeletal: No edema. No cyanosis. No clubbing. Full range of motion in all extremities. Nocalf tenderness. Radial/pedal pulses are intact and 2+ bilaterally Skin: Skin is warm and dry. No petechiae. No purpura. Neurological: Alert and oriented to person, place, and time. Cranial nerves II -XII are grossly intact. Normal speech. Strength is grossly symmetric. No sensory deficits. Psychiatric: Good eye contact. Normal interaction, affect and behavior. 01/10/19 23:49 - Medical Decision Making 01/10/19 23:18 I, Dr. Marisol Eduardo, DO, attest that this document has been prepared under my direction and personally reviewed by me in its entirety. I further attest, that it accurately reflects all work, treatment, procedures and medical decision -making performed by me. 01/10/19 23:18 a/p: 33yo female with epigastric pain with burning sensation in upper abd and up into chest -metallic taste in mouth -pt recently started ibuprofen 800mg tid and abx for a tooth infection - started a week ago by the dentist -not taking with food or milk -no n/v -no blood in stool -pt states episodic epigastric pain -will send labs, suspect gastritis secondary to abx and motrin -will give gi cocktail -will monitor and reassess [facility]/10/19 23:44 serum preg negative labs reviewed 01/11/19 00:02 pt still with mild pain to epigastric/ruq hx of gallstones, will obtain ruq ultrasound to eval for poss acute kaylynn 01/11/19 02:04 no gallstones seen on pts ultrasound, no acute kaylynn stable for dc to home with gi meds and instructions to take motrin and abx with food and milk
[2019-01-11] MEDS ORDERED: SODIUM CHLORIDE 0.9% 1000 ML INFUS.BAG IV ONE (01:31)
[2019-01-11] MEDS ORDERED: ACETAMINOPHEN 1000 MG/100 ML VIAL (NON FORMULARY) IVPB ONE (01:34)
[2019-01-11] MEDS ORDERED: ACETAMINOPHEN INJECTION 100 ML IVPB ONE (01:35)
== END 2019-01-11 02:32 | disposition home or self-care (01) ==
LOC: JER 21:36
PROC: 3E0337Z Introduction of Electrolytic and Water Balance Substance into Peripheral Vein, Percutaneous Approach (ICD-10-PCS; principal; 2019-01-10)
PROC: 3E033GC Introduction of Other Therapeutic Substance into Peripheral Vein, Percutaneous Approach (ICD-10-PCS; 2019-01-10)
PROC: 3E033NZ Introduction of Analgesics, Hypnotics, Sedatives into Peripheral Vein, Percutaneous Approach (ICD-10-PCS; 2019-01-10)
DX: R10.9 Unspecified abdominal pain (principal)
CPT/HCPCS: 36415; 76705-TC; 80053; 81003; 84703; 85027; 96361; 96365; 96375; 99283-25; J0131; J7030

== ENCOUNTER 2019-05-27 16:53 | Emergency (ER) | payer OTHER ==
[2019-05-27 17:10] VITALS: BP 132/70; PULSE 86; TEMP 98; BMI 20.3
--- NOTE | 2019-05-27 17:12 | PDOC ---
Rapid Medical Evaluation Time Seen by Provider: 05/27/19 17:08 Medical Evaluation: Allergies Allergy/AdvReac Type Severity Reaction Status Date / Time No Known Allergies Allergy Verified 01/10/19 21:39 05/27/19 17:09 I have performed a brief in-person evaluation of this patient. The patient presents with a chief complaint of:CP this am, worse w/ deep inspiration and w/ movement. No uri sxs. No RF for DVT/PE. No illicit drug use, no sig fmhx. No trauma Pertinent physical exam findings:stable and well catalina I have ordered the following:ekg The patient will proceed to the ED for further evaluation. Discharge Disposition - Diagnosis Chest pain Qualifiers: Chest pain type: unspecified Qualified Code(s): R07.9 - Chest pain, unspecified - Referrals - Patient Instructions - Post Discharge Activity
[2019-05-27] MEDS ORDERED: KETOROLAC TROMETHAMINE 60 MG/2 ML VIAL IM ONE (18:18)
--- NOTE | 2019-05-27 18:19 | PDOC ---
History of Present Illness - General Chief Complaint: Chest Pain Stated Complaint: CHEST PAIN Time Seen by Provider: 05/27/19 17:08 - History of Present Illness Initial Comments: 05/27/19 18:18 33-year-old female without comorbidities presents for evaluation of atraumatic onset of left-sided chest pain without radiation of symptoms which started this morning. Pain is worse with movement and deep breathing Past History - Past Medical History Allergies/Adverse Reactions: Allergies Allergy/AdvReac Type Severity Reaction Status Date / Time No Known Allergies Allergy Verified 05/27/19 17:10 Home Medications: Ambulatory Orders Levothyroxine Sodium [Synthroid] 75 mcg PO DAILY 05/30/17 Ranitidine [Zantac -] 300 mg PO ONCE 14 Days #14 tablet 01/11/19 Asthma: No Cancer: No Cardiac Disorders: No CVA: No COPD: No CHF: No Diabetes: No Disorders: Yes (pre eclampsia) HTN: No Seizures: No Thyroid Disease: Yes - Psycho Social/Smoking Cessation Hx Smoking Status: No Smoking History: Never smoked Have you smoked in the past 12 months: No Number of Cigarettes Smoked Daily: 0 Hx Alcohol Use: No Drug/Substance Use Hx: No Substance Use Type: None Hx Substance Use Treatment: No Review of Systems - Review of Systems Cardiac (ROS): Yes: Chest Pain *Physical Exam - Vital Signs Last Vital Signs Temp Pulse Resp BP Pulse Ox 98 F 86 18 132/70 98 05/27/19 17:08 05/27/19 17:08 05/27/19 17:08 05/27/19 17:08 05/27/19 17:08 - Physical Exam Comments: 05/27/19 18:18 GENERAL: The patient is awake, alert, and fully oriented, in no acute distress. HEAD: Normal with no signs of trauma. EYES: sclera anicteric, conjunctiva clear. ENT: Ears normal NECK: Normal range of motion LUNGS: Breath sounds equal, clear to auscultation bilaterally. No wheezes, and no crackles. HEART: S1 and S2 without murmur, rub or gallop. There is tenderness about the left costochondral junction in the areas of ribs 4 and 5 ABDOMEN: Soft, nontender, normoactive bowel sounds. No guarding, no rebound. No masses. EXTREMITIES: Normal range of motion, no edema. No clubbing or cyanosis. No cords, erythema, or tenderness. NEUROLOGICAL: Cranial nerves II through XII grossly intact. Normal speech, normal gait. PSYCH: Normal mood, normal affect. SKIN: Warm, Dry, normal turgor, no rashes or lesions noted. ED Treatment Course - RADIOLOGY Radiology Studies Ordered: Category Date Time Status CHEST PA & LAT [RAD] Stat Radiology 05/27/19 17:23 Taken Medical Decision Making - Medical Decision Making 05/27/19 18:49 Symptoms relieved with Toradol costochondritis follow-up with PCP discussed use of Tylenol and Motrin for pain Discharge - Discharge Information Problems reviewed: Yes Clinical Impression/Diagnosis: Costochondral chest pain Chest pain Qualifiers: Chest pain type: unspecified Qualified Code(s): R07.9 - Chest pain, unspecified Condition: Improved Disposition: HOME - Admission No - Follow up/Referral Referrals: Mana Hughes MD [Staff Physician] - - Patient Discharge Instructions Additional Instructions: Tylenol Motrin as directed for pain. Return to the emergency room for worsening symptoms. Please follow-up with your primary care physician in 1 to 2 days without fail for further evaluation and treatment options. - Post Discharge Activity
[2019-05-27] MEDS ORDERED: KETOROLAC TROMETHAMINE 60 MG/2 ML VIAL ONE (18:36)
--- NOTE | 2019-05-28 12:11 | EKG ---
Test Reason : Blood Pressure : / mmHG Vent. Rate : 089 BPM Atrial Rate : 089 BPM P-R Int : 156 ms QRS Dur : 072 ms QT Int : 360 ms P-R-T Axes : 075 060 065 degrees QTc Int : 438 ms NORMAL SINUS RHYTHM POSSIBLE LEFT ATRIAL ENLARGEMENT BORDERLINE ECG WHEN COMPARED WITH ECG OF 30-MAY-2017 17:39, NONSPECIFIC T WAVE ABNORMALITY NO LONGER EVIDENT IN LATERAL LEADS Confirmed by BRENNAN BUNCH, MANDY ([id number]) on 05/28/2019 12:11:01 PM Referred By: Confirmed By:MANDY AMIN MD
== END 2019-05-27 18:57 | disposition home or self-care (01) ==
LOC: JERFT 16:53
PROC: 3E0233Z Introduction of Anti-inflammatory into Muscle, Percutaneous Approach (ICD-10-PCS; principal; 2019-05-27)
DX: M94.0 Chondrocostal junction syndrome [Tietze] (principal); E03.9 Hypothyroidism, unspecified; Z86.79 Personal history of other diseases of the circulatory system
CPT/HCPCS: 71046-TC-FY; 93005; 93010; 96372; 99281-25